=== PATIENT | male | born 1960 | race American Indian/Alaskan Native ===

== ENCOUNTER 2018-04-30 09:22 | Outpatient (CLI) | payer MEDICAID ==
[2018-04-30 10:18] LABS: Blood Urea Nitrogen 12 mg/dL (9-20)
--- NOTE | 2018-04-30 11:38 | Cat Scan Report ---
CT ABDOMEN WITH AND WITHOUT CONTRAST INDICATION: Renal mass. COMPARISON: None similar at this institution. FINDINGS: Abdomen CT performed before and after intravenous administration of 100 cc of Omnipaque 300. LUNG BASES: Nonspecific distal esophageal wall prominence/thickening, not excluded for gastroesophageal reflux and/or hiatal hernia, amongst others. ABDOMEN: Precontrast images demonstrate cholecystectomy clips. No radiopaque renal calculi. Postcontrast images demonstrate bilateral renal cortical enhancement and excretion without hydronephrosis. Right renal contour deformity felt secondary to upper to mid renal cortical scarring as on axial series 5, images 12-25 with small calyceal diverticula as on axial images 16 and 21. Mild right renal malrotation also not excluded inferiorly. No definite focal suspicious renal hypervascular mass or contrast washout though identified. Approximately 1.5 cm left upper renal cortical cyst medially and few other subcentimeter, indeterminate renal hypodensities also seen. Post cholecystectomy biliary tree appearance with CBD caliber of approximately 1.1 cm at the boaz hepatis. Approximately 1.1 cm peripheral right hepatic lobe cyst inferiorly, axial series 3, image 19 with few other small, indeterminate subcentimeter hepatic hypodensities as well. Spleen, pancreas, adrenals, nonaneurysmal abdominal aorta with few atherosclerotic calcifications and IVC within normal limits. Nonopacified GI tract evaluation limited, though grossly nonobstructive. A normal appendix may be partially imaged in the right lower quadrant. Bilateral hip replacements, multiple pelvic surgical clips and mild dextroscoliosis apex about L1 noted. Multilevel advanced lumbar degenerative changes as extensive sclerosis, endplate irregularities, degenerative spurring and moderate to severe disc narrowing with vacuum phenomenon and facet arthropathy also seen. CONCLUSION: 1. No definite focal suspicious renal mass identified, though right renal contour deformity felt secondary to a combination of chronic scarring and developmental, as described. Please also correlate clinically and with prior evaluation that raised the concern for a renal mass. 2. Various other findings as distal esophageal thickening, cholecystectomy, small hepatic and renal cysts and advanced multilevel lumbar degenerative changes, amongst others, as above. Thank you for the opportunity to participate in this patient's care.
== END 2018-04-30 09:23 | disposition home or self-care (01) ==
LOC: CT 09:22
PROVIDERS: ATTEND Urology
DX: N28.1 Cyst of kidney, acquired (principal)
CPT/HCPCS: 36415; 74170; 82565; 84520; Q9967

== ENCOUNTER 2018-08-26 10:51 | Day surgery (SDC) | payer MEDICAID ==
[2018-08-26] MEDS ORDERED: ANCEF/STERILE WATER 2 GM/20 ML IV NR (11:17)
[2018-08-26] MEDS ORDERED: LACTATED RINGERS 1,000 ML IV SCH (11:17)
[2018-08-26] MEDS ORDERED: VERSED IV ONE (11:37)
[2018-08-26] MEDS ORDERED: ZOFRAN IV PRN (12:00)
[2018-08-26] MEDS ORDERED: REGLAN IV PRN (12:00)
--- NOTE | 2018-08-26 12:02 | Anesthesia Consultation ---
Anesthesia Consult and Med Hx Date of service: 08/26/18 - Airway Anesthetic Teeth Evaluation: Good ROM Head & Neck: Adequate Mental/Hyoid Distance: Adequate Mallampati Class: Class II Intubation Access Assessment: Good - Pulmonary Exam CTA: Yes - Cardiac Exam Cardiac Exam: RRR - Pre-Operative Health Status ASA Pre-Surgery Classification: ASA2 Proposed Anesthetic Plan: General - Pulmonary Hx Smoking: Yes (1/4 PPD X 40 YRS) Hx Sleep Apnea: No (MARY PRE SCREEN HIGH RISK) - Cardiovascular System Hx Hypertension: No Hx Heart Murmur: Yes (CAUSES NO PROBLEMS) - Central Nervous System Hx Back Pain: Yes (WITH ABEL LEG PAIN) - Other Systems Hx Substance Use: Yes (COCAINE- CLEAN X 6 MONTHS)
--- NOTE | 2018-08-26 12:02 | Anesthesia Day of Surgery ---
Anesthesia Day of Surgery - Day of Surgery Patient Examined: Yes Patient H&P Reviewed: Yes Patient is NPO: Yes
[2018-08-26] MEDS ORDERED: DIPRIVAN 10 MG/ML IV ONE (12:18)
[2018-08-26] MEDS ORDERED: XYLOCAINE MPF 2% ONE (12:18)
[2018-08-26] MEDS ORDERED: SUBLIMAZE ONE (12:33)
[2018-08-26] MEDS ORDERED: ZOFRAN ONE ×2 (12:56→12:57)
--- NOTE | 2018-08-26 13:06 | Post Operative Note ---
Date of procedure: 08/26/18 Pre-op diagnosis: urethral lesions Post-op diagnosis: same Findings: urethral lesions Procedure: mild r reflux prev xrt Anesthesia: GETA Surgeon: JOCELYN FOLEY Estimated blood loss: none Pathology: list (bladder urethra) Specimen disposition: to lab Condition: stable Disposition: PACU
--- NOTE | 2018-08-26 13:08 | Discharge Summary ---
Short Stay Discharge Plan Activity: other (no straining ) Weight Bearing Status: Full Weight Bearing Diet: regular Special Instructions: other (inc fluids ) Durable Medical Equipment Needed Upon Discharge: other (self x 4 days ) Follow up with: KEV HART MD [Primary Care Provider] - 7 Days JOCELYN FOLEY MD [Staff Physician] - 3 Days
[2018-08-26] MEDS: DILAUDID IV PRN ×2 (13:40→13:55)
--- NOTE | 2018-08-26 14:39 | Operative Report ---
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 PROCEDURE: Cystoscopy, retrograde, bladder and urethral biopsy. SURGEON: Kike Mckay MD ANESTHESIA: General. 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 He now presents for cystoscopic evaluation. DESCRIPTION OF PROCEDURE: The patient was brought to the operating room and placed on the operating table. Following induction of anesthesia, placed in lithotomy position, prepped and draped in usual sterile fashion. He has bilateral hip prosthesis, so we made special care not to adduct his hips what much. Cystoscopy showed a very tight urethra with fluffy, almost squamous changes. Biopsy was taken. We had to use a 20-Dutch scope. It was very tight with the bigger scope. The prostatic urethra was wide opened. View was prominent. It looks like there was no prostate. Right orifice was very dilated and there was grade 1 reflux. When we started doing a retrograde, the most of the fluid came back and we did not need to place a stent. Left retrograde showed good filling and good drainage. Excellent collecting system delicate. The patient tolerated the procedure well. A biopsy was taken and that area was cauterized. Urethra was not cauterized, just biopsied, did not bleed. A 14-Dutch Ortega was placed. The patient tolerated the procedure well and brought to recovery room, no significant bleeding, in stable condition. JOB# [id number] OSCAR/YOLANDA
[2018-08-26 14:56] VITALS: BP 123/79
--- NOTE | 2018-08-26 15:03 | Fluoroscopy Report ---
FLUOROSCOPY RETROGRADE UROGRAPHY: FLUOROSCOPY CYSTOGRAM: HISTORY: Renal mass. FINDINGS: Fluoroscopy was provided by radiology during retrograde urography by the urologist. 6 fluoroscopic images were captured. There is adequate filling of the left ureter and intrarenal collecting system with no filling defects or anatomic abnormalities identified. No images of the right retrograde pyelogram were saved. There is normal filling of the bladder. Ureteral and bladder biopsies were performed per the operative notes. Please correlate with the procedural report if needed. IMPRESSION: No abnormality identified.
== END 2018-08-26 15:23 | disposition home or self-care (01) ==
LOC: OR 10:51
PROVIDERS: ATTEND Urology
DX: N36.8 Other specified disorders of urethra (principal); N32.89 Other specified disorders of bladder; M19.90 Unspecified osteoarthritis, unspecified site; F17.210 Nicotine dependence, cigarettes, uncomplicated; Z79.82 Long term (current) use of aspirin; Z79.899 Other long term (current) drug therapy; Z96.643 Presence of artificial hip joint, bilateral; Z90.49 Acquired absence of other specified parts of digestive tract; Z92.21 Personal history of antineoplastic chemotherapy; Z85.53 Personal history of malignant neoplasm of renal pelvis
CPT/HCPCS: 52204; 74420; 88305; 88313; C1758; C1769; J0690; J1170; J2250; J2405; J2704; J3010; J7120; Q9967; 74430